=== PATIENT | female | born 1955 | race Caucasian/White ===

== ENCOUNTER 2020-06-30 05:59 | Outpatient (REF) | payer SELFPAY ==
[2020-06-30 07:00] LABS: MANUAL DIFF FLAG NO
[2020-06-30 07:09] LABS: Basophils Absolute Auto 0.1 X10*3/uL (0.0-0.2); Basophils Percent Auto 0.8 % (0-2); Eosinophils Absolute Auto 0.1 X10*3/uL (0.0-0.4); Eosinophils Percent Auto 1.6 % (0-4); Hematocrit 39.6 % (37-47); Hemoglobin 12.9 g/dl (12.0-16.0); Imm Gran Abs Auto 0.01 X10*3/uL (0.00-0.03); Imm Gran Pct Auto 0.1 % (0.0-0.4); Lymphocytes Absolute Auto 2.4 X10*3/uL (1.2-4.9); Lymphocytes Percent Auto 30.1 % (20-40); Mean Corpuscular HGB Conc 32.6 g/dl (31.0-35.0); Mean Corpuscular Hemoglobin 26.9 pg (27.0-33.0); Mean Corpuscular Volume 82.5 fL (80-98); Mean Platelet Volume 10.1 fL (9.4-12.3); Monocytes Absolute Auto 0.7 X10*3/uL (0.1-1.2); Monocytes Percent Auto 8.1 % (2-11); Neutrophils Absolute Auto 4.7 X10*3/uL (2.0-8.3); Neutrophils Percent Auto 59.3 % (45-73); Platelet Count 289 X10*3/uL (160-400); Red Cell Distribution Width 13.6 % (11.0-16.0)
[2020-06-30 07:26] LABS: Alanine Aminotransferase 13 U/L (0-31); Albumin Level 4.5 g/dL (3.5-5.0); Alkaline Phosphatase 81 U/L (39-117); Anion Gap 13 (12-20); Aspartate Amino Transferase 15 U/L (5-31); Bilirubin Total 0.7 mg/dL (0.0-1.0); Blood Urea Nitrogen 10 mg/dL (9-16); Calcium 9.6 mg/dL (8.4-10.2); Carbon Dioxide 25 mmol/L (22-29); Chloride 108 mmol/L (96-108); Cholesterol 222 mg/dL; Estimated Glomerular Filt Rate > 60; Glucose Fasting 97 mg/dL (60-99); HDL Cholesterol 54 mg/dL; LDL Cholesterol Calculated 143 mg/dl; Potassium 4.1 mmol/L (3.3-5.1); Sodium 142 mmol/L (135-145); Total Protein 6.7 g/dL (6.5-8.0); Triglycerides 126 mg/dL
[2020-06-30 07:53] LABS: Vitamin D 25-OH Total 19.6 ng/mL (>30)
== END 2020-06-30 06:00 | disposition home or self-care (01) ==
LOC: HO.LAB 05:59
PROVIDERS: PCP Nurse Practitioner Family; Visit Provider Nurse Practitioner Family
DX: I10 Essential (primary) hypertension (principal); E78.2 Mixed hyperlipidemia; E55.9 Vitamin D deficiency, unspecified
CPT/HCPCS: 36415; 80053; 80061; 82306; 85025

== ENCOUNTER 2022-06-27 08:18 | Day surgery (SDC) | payer MEDICARE, SELFPAY ==
--- NOTE | 2022-06-24 10:46 | P.CONAN_ITS ---
Documented by User: Nickie Adhikari NP 06/24/22 10:46 HPI - Anesthesia Eval Consult details Narrative: 66yo F for Colonoscopy [facility] Surgical History Surgical History (Updated 06/24/22 @ 06:33 by Ana Boles RN) Hx laparoscopic cholecystectomy Social History Social History Patient Tobacco Use Status: Never used Tobacco Use of substances other than those prescribed or required for medical reasons: No Advance Directives: No Advance Directives Information Provided: Yes Meds Allergies Allergy/AdvReac Type Severity Reaction Status Date / Time prednisone Allergy Unknown Verified 10/12/18 00:00 No Known Allergies Allergy Unverified 01/02/20 15:19 Home Medications Medication Instructions Recorded Confirmed Last Taken Type Probiotic 06/24/22 06/24/22 Unknown History Exam Exam Date and Time: June 24, [id number] Assessment and Plan Assessment Anesthesia Assessment: Chart Reviewed Documented by User: Pérez Grier MD 06/27/22 09:10 [facility] Family History Family history of problems with anesthesia: No Surgical History Surgical History (Updated 06/24/22 @ 06:33 by Ana Boles RN) Hx laparoscopic cholecystectomy History of Problems with Anesthesia: No Social History Social History Patient Tobacco Use Status: Never used Tobacco Use of substances other than those prescribed or required for medical reasons: No Advance Directives: No Advance Directives Information Provided: Yes Meds Allergies Allergy/AdvReac Type Severity Reaction Status Date / Time prednisone Allergy Unknown Verified 10/12/18 00:00 No Known Allergies Allergy Unverified 01/02/20 15:19 Home Medications Medication Instructions Recorded Confirmed Last Taken Type Probiotic 06/24/22 06/24/22 Unknown History Exam Airway Mallampati Class: II TM Dist: >3cm Neck ROM: Full Heart: rrr Lungs: cta Assessment and Plan Final Anesthetic Review Family History of Problems with Anesthesia: No History of Problems with Anesthesia: No NPO: Yes ASA Class: II Final Preanesthetic Review: No Changes in Pt Med Stat, Meds/Allgs Chart Reviewed, Consent Obtained/Reviewed and Anes Risks/Benef Reviewed Patient Risk: Low Procedure Risk: Low Anesthetic Plan Anesthetic Plan: MAC: Disposition: Standard PACU
[2022-06-27 08:27] VITALS: BP 131/80; PULSE 93; RESP 16; TEMP 37; O2SAT 96; BMI 25.1
[2022-06-27 10:49] VITALS: BP 101/64; PULSE 96; RESP 14; TEMP 36.8; O2SAT 96
--- NOTE | 2022-06-27 10:49 | P.BOP_ITS ---
Brief Operative Note Date of Service: 06/27/22 Pre-op diagnosis: + Cologuard, Screening Post-op diagnosis: other (Diverticulosis) Procedure: Colonoscopy to the cecum and TI Surgeon: Chandan Deleon Anesthesia: MAC Was an Ruby Rails Developer used for this Procedure?: No Estimated blood loss (mL): 0 Pathology: none sent Condition: stable Disposition: PACU
[2022-06-27 11:05] VITALS: BP 142/90; PULSE 80; RESP 16; TEMP 36.3; O2SAT 98
--- NOTE | 2022-06-27 11:26 | OP_ITS ---
SURGEON: Chandan Deleon MD INDICATIONS: The patient presents for evaluation of positive Cologuard testing and colorectal cancer screening. Full consent has been obtained from her for this, including risks of bleeding and perforation. PREOPERATIVE DIAGNOSIS: POSTOPERATIVE DIAGNOSIS: PROCEDURE PERFORMED: Colonoscopy to the cecum and terminal ileum. ESTIMATED BLOOD LOSS: COMPLICATIONS: ANESTHESIA: Monitored anesthesia care ASSISTANTS: SPECIMENS: PREOPERATIVE DIAGNOSES: Positive Cologuard testing and colorectal cancer screening. PREOPERATIVE DIAGNOSES: Positive Cologuard testing and colorectal cancer screening, diverticulosis, and internal and external hemorrhoids. DESCRIPTION OF PROCEDURE: The patient was placed in the left lateral decubitus position. The digital rectal exam revealed external hemorrhoids. The Olympus video pediatric colonoscope was then entered into the rectum and advanced easily to the cecum. Once in the cecum, I did identify normal-appearing cecal pouch with appendiceal orifice and a normal-appearing ileocecal valve. The terminal ileum was cannulated and appeared normal. The scope was withdrawn back in the colon. The entire cecum and ileocecal valve appeared normal. The scope was then slowly withdrawn assessing all mucosal surfaces carefully. Preparation was excellent. I did not visualize any sign of polyps, colitis nor angiodysplasia. There was a mild amount of sigmoid diverticulosis. In the rectum, the scope was retroflexed visualizing internal hemorrhoids, but no other pathology. The rectal mucosa appeared normal. The scope was straightened and withdrawn from the patient. She tolerated the procedure well and was returned to the recovery area in stable condition. IMPRESSION: 1. Diverticulosis. 2. Internal and external hemorrhoids. PLAN: Given today's negative colonoscopy, I would recommend a followup colonoscopy in 10 years for further screening. She will otherwise see me on a p.r.n. basis. MD ROSALIO Larson/CASS / [phone] KASEY
== END 2022-06-27 12:00 | disposition home or self-care (01) ==
PROVIDERS: PCP Nurse Practitioner Family; Visit Provider Internal Medicine
PROC: 0DJD8ZZ Inspection of Lower Intestinal Tract, Via Natural or Artificial Opening Endoscopic (ICD-10-PCS; CPT 45378; principal; 2022-06-27 09:30)
DX: R19.5 Other fecal abnormalities (principal); K57.30 Diverticulosis of large intestine without perforation or abscess without bleeding; K64.8 Other hemorrhoids; K64.4 Residual hemorrhoidal skin tags; Z88.8 Allergy status to other drugs, medicaments and biological substances; Z90.49 Acquired absence of other specified parts of digestive tract; Z87.891 Personal history of nicotine dependence
CPT/HCPCS: 45378

== ENCOUNTER 2023-02-24 08:29 | Outpatient (REF) | payer MEDICARE, SELFPAY ==
--- NOTE | ~2023-02-24 | MM_ITS ---
EXAMINATION: BONE DENSITOMETRY CLINICAL INDICATION: Screening. COMPARISON: Previous BD dated 06/11/2019 and baseline BD dated 07/25/2013. TECHNIQUE: Using a Pure Focus DXA System (software version: 13.1) manufactured by [employer], dual-energy x-ray absorptiometry was performed of the lumbar spine and left hip. The images are of good technical quality. Summary results are attached. FINDINGS: LEFT FEMUR, NECK: Current: BMD 0.932 g/cm2, Z-score 0.9, T-score -0.8, normal. Prior: BMD 0.934 g/cm2. Baseline: BMD 0.927 g/cm2. LEFT FEMUR, TOTAL: Current: BMD 1.056 g/cm2, Z-score 1.8, T-score 0.4, normal, 0.1% increase from previous, 0.6% increase from baseline (<5% change is not significant). Prior: BMD 1.055 g/cm2. Baseline: BMD 1.050 g/cm2. AP SPINE L1-L3 (excluding L4): The data of L1-L4 has been changed to exclude the L4 vertebral body, because degenerative sclerosis at this level may cause overestimation of lumbar spine density. Current: BMD 0.913 g/cm2, Z-score -0.6, T-score -2.1, osteopenia, 7.3% decrease from previous, 8.7% decrease from baseline (<5% change is not significant). Prior: BMD 0.985 g/cm2. Baseline: BMD 1.000 g/cm2. IDENTIFIED RISK FACTORS: Menopause. HISTORY OF FRACTURE: None listed. MEDICATIONS: Multivitamin, vitamin D. MM/XR DEXA axial skeleton IMPRESSION: 1. DIAGNOSIS: Osteopenia based on the lowest T-score value of -2.1 in the lumbar spine applying World Health Organization criteria. 2. 10-YEAR FRACTURE RISK PREDICTION, FRAX: Major osteoporotic fracture (clinical spine, forearm, hip or shoulder) 8.3%. Hip fracture 0.7%. 3. Treatment Recommendations: NOF guidelines recommend consideration for treatment in postmenopausal women and men age 50 and older presenting with the following: -A hip or vertebral (clinical or morphometric) fracture. -T-score less than or equal to -2.5 at the femoral neck or spine after appropriate evaluation to exclude secondary causes. -Low bone mass at the hip or spine and a 10-year fracture probability by FRAX of greater than or equal to 3% for hip fracture or greater than or equal to 20% for major osteoporotic fracture based on the [place] adapted WHO algorithm. 4. Other Recommendations: All treatment decisions require clinical judgment and consideration of individual patient factors, including patient preferences, comorbidities, previous drug use, risk factors not captured in the FRAX model (e.g. frailty, falls, vitamin D deficiency, increased bone turnover, interval significant decline in bone density) and possible under or overestimation of fracture risk by FRAX. Additional medical evaluation for secondary cause of low bone mineral density may be appropriate. FUTURE SCAN RECOMMENDATION: People with diagnosed cases of osteoporosis or at high risk for fracture should have regular bone mineral density tests. For patients eligible for Medicare, routine testing is allowed once every 2 years. The testing frequency can be increased to one year for patients who have rapidly progressing disease, those who are receiving or discontinuing medical therapy to restore bone mass, or have additional risk factors.
--- NOTE | ~2023-02-24 | MM_ITS ---
EXAMINATION: MM SCREENING DIGITAL BREAST TOMOSYNTHESIS, BILATERAL CLINICAL INFORMATION: Screening. Asymptomatic. COMPARISON: Mammography: 06/11/2019, 05/06/2017, 01/27/2016 TECHNIQUE: Digital breast tomosynthesis is performed in both the craniocaudal and mediolateral oblique views along with computer-aided detection (CAD). Synthesized 2D images are generated from the tomosynthesis. FINDINGS: The breasts are extremely dense, which lowers the sensitivity of mammography (ACR BI-RADS breast composition Category d). Again, there are benign scattered bilateral round and coarse calcifications and some stable fine calcifications central and lower left breast. There are no suspicious masses, suspicious grouped calcifications, or areas of architectural distortion in either breast. The parenchymal pattern is stable from prior exams. MM/MM tomosynthesis screening BI IMPRESSION: No mammographic evidence of malignancy. Stable benign findings. ASSESSMENT: BI-RADS BI-RADS 2 - Benign Findings RECOMMENDATION: Routine annual mammography screening. 1 year F/U This examination should not preclude the clinical evaluation of a suspicious palpable abnormality. This patient's information was entered into a reminder system with a target due date for their next mammogram.
== END 2023-02-24 08:30 | disposition home or self-care (01) ==
LOC: HO.MAMMO 08:29
PROVIDERS: PCP Nurse Practitioner Family; Visit Provider Nurse Practitioner Family
DX: Z12.31 Encounter for screening mammogram for malignant neoplasm of breast (principal); Z13.820 Encounter for screening for osteoporosis; Z78.0 Asymptomatic menopausal state
CPT/HCPCS: 77063; 77067; 77080

== ENCOUNTER → 2023-02-24 09:00 | Outpatient (BNV) | payer MEDICARE, SELFPAY | PROVIDERS: PCP Nurse Practitioner Family; Visit Provider Radiology Diagnostic Radiology | DX: Z12.31 Encounter for screening mammogram for malignant neoplasm of breast (principal) | CPT/HCPCS: 77063; 77067 ==

== ENCOUNTER 2023-06-08 08:14 | Emergency (ER) | payer MEDICARE, SELFPAY ==
[2023-06-08 08:48] VITALS: BP 156/68; PULSE 95; RESP 16; TEMP 37; O2SAT 97; BMI 26.6
--- OUTSIDE RECORDS SUMMARY | 2023-06-08 09:28 | XMS_ITS | Patient Health Record ---
Author Name Unknown Organization [facility] Address [address] [place] [address] Care Team Providers Care Vp Compliance Name Role Phone Dennise MOSQUEDA, Klarissa Primary Care Provider Chandan Montano [phone] ALLERGIES Allergen (clinical drug ingredient) Drug/Non Drug Allergy documented on EMR Reaction Allergy Type Onset Date Status prednisone Prednisone Unknown Drug Allergy Activ e REASON FOR REFERRAL No Information IMMUNIZATIONS Vaccine Route Administration Date Status Comme nts Influenza Unknown 05/10/2022 Refused SOCIAL HISTORY Tobacco Use: Social History Observation Description Date Details (start date - stop date) Former Smoker NA - NA Sex Assigned At : Social History Observation Description Sex Assigned At Unknown Tobacco Use/Smoking Question Answer Notes Patient is a former smoker How long has it been since you last smoked? 1-5 years Alcohol Screen Question Answer Notes Did you have a drink contain ing alcohol in the past year? Yes How often did you have a dri nk containing alcohol in the past year? Monthly or less (1 point) How many drinks did you have on a typical day when you were drinking in the past year? 3 or 4 drinks (1 point) How often did you have 6 or more drinks on one occasion in the past year? Never (0 point) Points 2 Interpretation Negative PROBLEMS Problem Type ICD Code Onset Dates Problem Status W/U Status Risk SNOMED Code Notes Problem Dilated bile duct (K83.8) Active confirmed 950111168 Problem Encounter for screening for malignant neoplasm of colon (Z12.11) Active confirmed 463499752 Problem Pancreas divisum (Q45.3) Active confirmed 16315667 Problem Colon cancer screening (Z12.11) Active confirmed 645709313 Problem Preprocedural examination (Z01.818) Active confirmed 877120803957997 Problem Positive colorectal cancer screening using Cologuard test (R19.5) Active confirmed 654473546 Problem Diverticulosis of large intestine without perforation or abscess without bleeding (K57.30) Active confirmed Diverticul ar disease of colon (750355465) Encounters Encounter Location Date Provider Diagnosis [facility] [address] [place] [address] [phone] 06/27/2022 Chandan Deleon Diverticulosis of large intestine without perforation or abscess without bleeding K57.30 ; Other hemorrhoids K64.8 and Heme positive stool R19.5 ASSESSMENTS Encounter Date Diagnosis Assessment Notes Treatment Notes Treatment Clinical Notes 06/27/2022 Diverticulosis of large intestine without perforation or abscess without bleeding (ICD-10 - K57.30) 06/27/2022 Other hemorrhoids (ICD-10 - K64.8) 06/27/2022 Heme positive stool (ICD-10 - R19.5) PLAN OF TREATMENT Pending Test Test Name Order Date LIVER PROFILE 03/16/2017 Future Test Test Name Order Date COLONOSCOPY 03/16/2017 COLONOSCOPY 05/10/2022 Insurance Providers Payer Name Payer Address Payer Phone Subscriber Number Group Number Insured Name Patient Relationship to Insured Coverage Start Date Coverage End Date [employer] Medicare Advantage Plan [address] [address] [place] [address] [phone] [id number] MARIA DE JESUS WILEY Self - patient is the insured MEDICARE OF [place] [address] [place] [address] [phone] [id number] MARIA DE JESUS WILEY Self - patient is the insured MEDICAL (GENERAL) HISTORY Medical History History ICD Code Denies [place],DM,CVA,Lung disease,renal dise ase Incidental finding of asympt omatic pancreas divisum on MRCP in March 2017. Surgical History Surgery Date(Month/Year) Lap CCY for gallstones 1997
[2023-06-08] MEDS: Rabies Vaccine, Human Diploid (Imovax) 1 ML VIAL IM (09:57)
[2023-06-08] MEDS: Rabies Immune Globulin/PF 900 UNIT/3 ML VIAL 1362 UNIT IM (10:05)
--- NOTE | 2023-06-08 10:15 | ED_ITS ---
HPI - Animal Bite General Chief Complaint: Animal Bite Stated Complaint: Cat bite Time Seen by Provider: 06/08/23 09:11 Source: patient and RN notes reviewed Mode of arrival: ambulatory Limitations: no limitations History of Present Illness HPI narrative: This is a 67-year-old female, with no known medical problems, presenting to the emergency department with complaints of cat bite which occurred this morning. Patient states that she was feeding stray cat when suddenly the cat attacked her, and bit her and scratched her in both of her hands. She immediately rinsed her hands with warm soapy water. Her tetanus is up-to-date. She is uncertain the immunization status of the cat. She denies any current fevers or chills. Denies difficulty moving her hands. No other complaints or concerns at this time. MD complaint: animal bite and animal-related injury Animal: cat Description of animal: immunizations unknown and appeared well Mechanism: bite, scratch and contact with mucous membranes Location - Extremities: bilateral: hand Pain description: sharp Context: other (While feeding) Associated symptoms: none Treatments prior to arrival: wound dressing(s) and irrigation Related Data Patient tetanus UTD: Yes Home Medications Medication Instructions Recorded Confirmed Probiotic 06/24/22 06/24/22 Previous Rx's Medication Instructions Recorded amoxicillin 875 mg-potassium 1 tab PO BID 7 days #14 tabs 06/08/23 clavulanate 125 mg tablet bacitracin 500 unit/gram topical 1 appl topical BID #14.2 grams 06/08/23 ointment Allergies Allergy/AdvReac Type Severity Reaction Status Date / Time prednisone Allergy Unknown Rash Verified 06/08/23 08:47 Review of Systems 2 Review of Systems: Yes all other systems are reviewed and are negative PMFSH Past Medical History Attestation statement: The following information was validated with the patient. Surgical History Hx laparoscopic cholecystectomy Social History Social History Patient Tobacco Use Status: Never used Tobacco Smoked in Last 30 Days: No Use of substances other than those prescribed or required for medical reasons: No Advance Directives: No Advance Directives Information Provided: Yes Physical Exam ED Vital Signs: Vital Signs - 24 hr 06/08/23 08:48 Temperature 98.6 F Pulse Rate 95 Respiratory Rate 16 Blood Pressure 156/68 H Pulse Oximetry 97 Oxygen Delivery Method Room Air BMI result Body Mass Index 26.6 Const Other: General: Awake, alert, and oriented X3. No acute distress. HEENT: Normal inspection CVS: Normal heart rate and rhythm. Pulses normal. Respiratory: No respiratory distress Skin: Warm, dry, no rashes noted to exposed skin. Normal skin color. Normal skin turgor. Extremities: see photos below; full range of motion of bilateral hands and wrist, no bony tenderness. Able to oppose thumb to all digits without difficulty. Radial pulse 2 + Neuro: Oriented X 3. No motor deficit. No sensory deficit. Right hand with scattered puncture wounds noted overlying the dorsal aspect, no active drainage, no bony tenderness Left hand with 1 puncture wound noted to the dorsal aspect overlying the fourth metacarpal bone. Palmar aspect overlying the 5th metacarpal bone there is a proximally 1-1/2 partial-thickness laceration noted, no foreign body noted. No active bleeding Medications Administered Discontinued Medications Generic Name Dose Route Start Last Admin Trade Name Freq PRN Reason Stop Dose Admin Rabies Immune Globulin 1,362 unit 06/08/23 09:23 06/08/23 10:05 Rabies Immune Globulin/Pf 900 Unit/3 Ml Vial 20 unit/kg (1362 unit) 06/08/23 09:24 1,362 unit IM Administration ONCE ONE Rabies Vaccine Human Diploid Cell 1 ml 06/08/23 09:23 06/08/23 09:57 Rabies Vaccine, Human Diploid (Imovax) 1 Ml Vial IM 06/08/23 09:24 1 ml .ONCE ONE Administration Medical Decision Making Medical Decision Making [facility] Narrative: This is a 67-year-old female, with no known medical problems, presenting to the emergency department with complaints of cat bite/scratches which occurred this morning. On arrival, patient mildly hypertensive at 156/68, all other vital signs within normal limits. Bilateral hands with multiple superficial abrasions and bites noted. She does have a partial-thickness laceration noted to her left hand, this is linear, does not need suture repair. These bites were cleansed with Betadine, and infiltrated with the rabies immunoglobulin. Rabies vaccine also administered to patient. Urged the importance of keeping these wounds clean and dry, discharged on Augmentin. Given strict return precautions and advised patient that these wounds can get infected very quickly therefore the importance of returning is very important. She understands and agrees with this plan. She will follow-up with the short-stay facility to complete rabies series. Your tetanus is up-to-date therefore we do not have to administer it today. Patient understands and agrees with plan. Patient stable for discharge Differential Diagnosis Differential Diagnoses: The differential diagnosis associated with the presentation includes Cat bite, cellulitis, puncture wound, laceration, rabies prophylaxis Discharge Plan Discharge Clinical Impression: Cat bite, Bite by animal Patient Disposition: Home, Self-Care Instructions: Animal Bite (ED), Rabies (ED) Additional Instructions: You were seen in the emergency department after being bit by a stray cat this morning. Please take entire course of antibiotics even if you are feeling better. Keep wounds clean and dry. Wash twice a day with soap and water. You you may also apply bacitracin to the wounds as needed. If any new or worsening symptoms occur including but not limited to worsening swelling drainage fevers, chills, decreased range of motion of your hands, please return for re-evaluation. We started the rabies series today. It is very important that you complete the full series, and return on the dates provided to you. They are as follows: Please return on day 3: 06/11; day 7: , and day 14: 06/21. You can complete the series at short stay, approach the main entrance and ask for short stay and they will direct you on where to go. Prescriptions: New bacitracin 500 unit/gram ointment 1 appl topical BID Qty: 14.2 0RF amoxicillin-pot clavulanate 875-125 mg tablet 1 tab PO BID 7 Days Qty: 14 0RF No Action Probiotic
== END 2023-06-08 10:41 | disposition home or self-care (01) ==
PROVIDERS: Emergency Provider Emergency Medicine; PCP Nurse Practitioner Family
DX: S61.452A Open bite of left hand, initial encounter (principal); S61.451A Open bite of right hand, initial encounter; W55.01XA Bitten by cat, initial encounter; Y93.89 Activity, other specified; Y92.039 Unspecified place in apartment as the place of occurrence of the external cause; Y99.9 Unspecified external cause status; Z20.3 Contact with and (suspected) exposure to rabies
CPT/HCPCS: 90375; 90471; 90675; 96372; 99284

== ENCOUNTER 2023-06-12 10:36 | Outpatient (REF) | payer MEDICARE, SELFPAY | END 2023-06-12 10:37 | disposition home or self-care (01) | LOC: HO.MDS 10:36 | PROVIDERS: Visit Provider Emergency Medicine | DX: Z20.3 Contact with and (suspected) exposure to rabies (principal); T14.8XXD Other injury of unspecified body region, subsequent encounter; W55.01XD Bitten by cat, subsequent encounter | CPT/HCPCS: 90471; 90675 ==

== ENCOUNTER 2023-06-16 09:32 | Outpatient (REF) | payer MEDICARE, SELFPAY ==
[2023-06-16 09:53] VITALS: BP 140/75; PULSE 86; RESP 18; TEMP 36.9; O2SAT 98
[2023-06-16] MEDS: Rabies Vaccine, Human Diploid (Imovax) 1 ML VIAL IM (10:05)
== END 2023-06-16 09:33 | disposition home or self-care (01) ==
LOC: HO.MDS 09:32
PROVIDERS: Visit Provider Emergency Medicine
DX: Z20.3 Contact with and (suspected) exposure to rabies (principal); T14.8XXD Other injury of unspecified body region, subsequent encounter; W55.01XD Bitten by cat, subsequent encounter
CPT/HCPCS: 90471; 90675

== ENCOUNTER 2023-06-23 09:32 | Outpatient (REF) | payer MEDICARE, SELFPAY ==
[2023-06-23 09:38] VITALS: BP 135/86; PULSE 87; RESP 16; TEMP 37; O2SAT 96
[2023-06-23] MEDS: Rabies Vaccine, Human Diploid (Imovax) 1 ML VIAL IM (09:47)
== END 2023-06-23 09:33 | disposition home or self-care (01) ==
LOC: HO.MDS 09:32
PROVIDERS: Visit Provider Emergency Medicine
DX: Z20.3 Contact with and (suspected) exposure to rabies (principal); T14.8XXD Other injury of unspecified body region, subsequent encounter; W55.01XD Bitten by cat, subsequent encounter
CPT/HCPCS: 90471; 90675